=== PATIENT | male | born 1945 | race Caucasian/White ===

== ENCOUNTER 2018-06-23 05:04 | Emergency (ER) | payer OTHER ==
[~2018-06-23] VITALS: Ht 177.8 cm; Wt 106.6 kg
[2018-06-23] MEDS ORDERED: BENICAR40 MG PO (05:15)
[2018-06-23] MEDS ORDERED: CARVEDILOL12.5 MG PO (05:15)
[2018-06-23] MEDS ORDERED: ASPIR 8181 MG PO (05:15)
[2018-06-23] MEDS ORDERED: NORVASC5 MG PO (05:15)
[2018-06-23] MEDS ORDERED: SIMVASTATIN40 MG PO (05:15)
[2018-06-23] MEDS ORDERED: ELIQUIS5 MG PO (05:16)
[2018-06-23] MEDS ORDERED: B-125000 MC2 PO (05:16)
[2018-06-23 05:39] LABS: ABSOLUTE NEUTROPHILS 10.8 thou/uL (1.4-8.2); BASOPHILS 0.4 % (0.0-2.0); EOSINOPHILS 0.3 % (0.0-3.0); HEMATOCRIT 49.8 % (42.0-52.0); LYMPHOCYTES 5.2 % (24.0-44.0); MCH 30.4 pg (26.0-34.0); MCV 89.3 fL (80.0-100.0); MONOCYTES 5.7 % (1.0-8.0); PLATELET COUNT 232 thou/uL (150-400); POLYS 88.4 % (36.0-66.0); RBC 5.58 mil/uL (4.50-6.00); RDW 13.6 % (10.5-14.5); WBC 12.2 thou/uL (4.0-11.0)
[2018-06-23 05:47] LABS: CREATININE 1.7 mg/dL (0.7-1.3); POTASSIUM 3.5 mmol/L (3.5-5.1)
[2018-06-23 05:52] LABS: ALBUMIN 3.8 g/dL (3.4-5.0); DIRECT BILIRUBIN 0.1 mg/dL (<0.1-0.3); TOTAL BILIRUBIN 0.7 mg/dL (<0.1-1.0); TOTAL PROTEIN 7.7 g/dL (6.4-8.2)
[2018-06-23 06:34] LABS: URINE BILIRUBIN NEGATIVE (Negative); URINE BLOOD 1+ (Negative); URINE CLARITY CLEAR; URINE COLOR YELLOW; URINE GLUCOSE-RANDOM* NEGATIVE (Negative); URINE KETONES TRACE (Negative); URINE LEUKOCYTES-REFLEX NEGATIVE (Negative); URINE NITRITE-REFLEX NEGATIVE (Negative); URINE PROTEIN (DIPSTICK) TRACE (Negative); URINE SPECIFIC GRAVITY 1.025 (1.005-1.035); URINE UROBILINOGEN 0.2 E.U./dl (0.2-1.0)
[2018-06-23 06:45] LABS: BACTERIA-REFLEX 1-9 Few /HPF (None Seen); CASTS None Seen /LPF (None Seen); CRYSTALS None Seen /LPF (None Seen); SQUAMOUS None Seen /LPF (0-3); URINE RBC 3-10 Few /HPF (0-2); URINE WBC-REFLEX None Seen /HPF (0-5)
[2018-06-23] MEDS ORDERED: ZOFRAN ODT4 MG PO (07:05)
[2018-06-23] MEDS ORDERED: NORCO 7.5-3251 EACH PO (07:05)
[2018-06-23] MEDS ORDERED: SENNA-DOCUSATE1 EAC1 PO (07:05)
[2018-06-23 07:23] VITALS: BP 146/89
== END 2018-06-23 07:25 | disposition still patient (30) ==
LOC: ER 05:04
PROVIDERS: Emergency Medicine
DX: N20.1 Calculus of ureter (principal); N17.9 Acute kidney failure, unspecified; Z88.2 Allergy status to sulfonamides